=== PATIENT | female | born 1990 | race Caucasian/White ===

== ENCOUNTER 2019-07-16 10:18 | Emergency (ER) | payer BC ==
[2019-07-16] MEDS ORDERED: Dexamethasone 10 MG/ML SDV IM ONE (11:26)
[2019-07-16] MEDS ORDERED: Orphenadrine 100 MG Tab.ER PO ONE (11:26)
--- NOTE | 2019-07-16 11:35 | EDM.PDOC ---
ED HPI GENERAL MEDICAL PROBLEM - General Chief Complaint: Back Pain or Injury Stated Complaint: BACK PAIN DUE TO FALL Time Seen by Provider: 07/16/19 11:12 Source of Information: Reports: Patient, RN Notes Reviewed History Limitations: Reports: No Limitations - History of Present Illness INITIAL COMMENTS - FREE TEXT/NARRATIVE: Patient is a 28-year-old female who presents to the ED for evaluation of back pain. The patient states that she has been trying to lose some weight, and started working out on Sunday for the first time in a long time, and her legs were sore and felt a little bit weak due to the workout. She states that on Sunday at home she was walking down the stairs, and her legs gave out at the very end of her staircase, she states that she fell down one stair. The patient states she did not lose consciousness, she is not having any headache blurred vision or double vision she did not have any dental injuries or abrasions to the face. Patient states she is mainly concerned about her back pain as this is not seeming to be going away. She's been using ibuprofen for the pain, but she states the pain feels similar to when she had sciatica when she was one time before. She notes that she takes about 8-10 tablets daily of ibuprofen regular strength. The patient notes that she has never had a prior back injury, but she has had a prior neck injury, and she has some leftover Flexeril from this, she states that she took this at night and this seemed to help, but the pain was still there. The patient notes that the pain radiates down her right leg. The patient notes a recent move from [place], and she is scheduled to see Dr. Elliott at the end of the month to set up care for management. 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 Cysts Musculoskeletal History: Reports: None Neurological History: Reports: Migraines Psychiatric History: Reports: Anxiety Endocrine/Metabolic History: Reports: Obesity/BMI 30+ Hematologic History: Reports: None Immunologic History: Reports: None Oncologic (Cancer) History: Reports: None Dermatologic History: Reports: None - Infectious Disease History Infectious Disease History: Reports: None - Past Surgical History Head Surgeries/Procedures: Reports: None HEENT Surgical History: Reports: Oral Surgery Social & Family History - Tobacco Use Smoking Status *Q: Never Smoker - Caffeine Use Caffeine Use: Reports: None - Recreational Drug Use Recreational Drug Use: No - Living Situation & Occupation Living situation: Reports: Occupation: Unemployed (She is a [id number] mom with 3 youngsters.) ED ROS GENERAL - Review of Systems Review Of Systems: See Below Constitutional: Denies: Fever, Chills HEENT: Reports: No Symptoms Respiratory: Denies: Shortness of Breath Cardiovascular: Denies: Chest Pain Endocrine: Reports: No Symptoms GI/Abdominal: Denies: Abdominal Pain, Diarrhea, Nausea, Vomiting : Reports: No Symptoms Musculoskeletal: Reports: Back Pain (with radiation to R leg), Muscle Stiffness (lower back) Skin: Denies: Bruising Neurological: Denies: Numbness, Tingling, Difficulty Walking Psychiatric: Reports: No Symptoms Hematologic/Lymphatic: Reports: No Symptoms Immunologic: Reports: No Symptoms ED EXAM,LOWER BACK PAIN/INJURY - Physical Exam Exam: See Below Exam Limited By: No Limitations General Appearance: Alert, WD/WN, No Apparent Distress Eye Exam: Bilateral Eye: EOMI, Normal Inspection, PERRL Ears: Normal External Exam Nose: Normal Inspection Throat/Mouth: Normal Inspection, Normal Lips, Normal Teeth, Normal Gums, Normal Oropharynx, Normal Voice, No Airway Compromise Head: Atraumatic, Normocephalic Neck: Normal Inspection Respiratory/Chest: No Respiratory Distress, Lungs Clear, Normal Breath Sounds, No Accessory Muscle Use, Chest Non-Tender Cardiovascular: Normal Peripheral Pulses, Regular Rate, Rhythm, No Murmur GI/Abdominal: Normal Bowel Sounds, Soft, Non-Tender, No Distention, No Mass Back Exam: Normal Inspection, Decreased Range of Motion (limited d/t pain.), Muscle Spasm (lower back, muscle tightness notes) Extremities: Normal Inspection, Normal Range of Motion, Normal Capillary Refill Neurological: Alert, Normal Mood/Affect, Normal Dorsiflexion, Normal Plantar Flexion, Normal Gait, Normal Reflexes, No Motor/Sensory Deficits, Oriented x 3, Straight Leg Raise (R). No: Straight Leg Raise (L), Saddle Anesthesia, Difficulty Walking Psychiatric: Normal Affect, Normal Mood Skin Exam: Warm, Dry, Intact, Normal Color, No Rash Course - Vital Signs Last Recorded V/S: Last Vital Signs Temp 97.6 F 07/16/19 11:02 Pulse 98 07/16/19 11:02 Resp 16 07/16/19 11:02 BP 141/96 H 07/16/19 11:02 Pulse Ox 99 07/16/19 11:02 - Orders/Labs/Meds Orders: Active Orders 24 hr Category Date Time Status Lumbar Spine 2 or 3V [CR] Stat Exams 07/16/19 11:26 Ordered Meds: Medications Discontinued Medications Generic Name Dose Route Start Last Admin Trade Name Miguelq PRN Reason Stop Dose Admin Dexamethasone 10 mg 07/16/19 11:26 07/16/19 11:51 Dexamethasone IM 07/16/19 11:27 10 mg ONETIME ONE Administration Orphenadrine Citrate 100 mg 07/16/19 11:26 07/16/19 11:51 Norflex PO 07/16/19 11:27 100 mg ONETIME ONE Administration - Re-Assessments/Exams Free Text/Narrative Re-Assessment/Exam: 07/16/19 11:37 Patient presents to the ER for a back injury, I did order 100 mg PO Norflex, 10 mg IM dexamethasone, and a lumbar spine, for initial evaluation and management. Strongly suggestive of sciatica in nature, but she states when she moves certain ways her spine feels as if it wants to pop but will not. I want to rule out any further injury that she may have. 07/16/19 12:48 Patient's x-rays are done, and demonstrate no acute fracture or bony abnormalities, official radiology read is pending, but these x-rays reviewed by myself and Dr. Zimmerman. Will discharge home with general recommendations. We' ll treat her for sciatica at this time. Departure - Departure Time of Disposition: 12:49 Disposition: Home, Self-Care 01 Condition: Fair Clinical Impression: Low back pain Qualifiers: Chronicity: acute Back pain laterality: bilateral Sciatica presence: with sciatica Sciatica laterality: sciatica of right side Qualified Code(s): M54.41 - Lumbago with sciatica, right side - Discharge Information *PRESCRIPTION DRUG MONITORING PROGRAM REVIEWED*: No *COPY OF PRESCRIPTION DRUG MONITORING REPORT IN PATIENT [place]: No Prescriptions: Orphenadrine [Norflex] 100 mg PO BID PRN #20 tab PRN Reason: Spasms predniSONE [Deltasone] 20 mg PO ASDIRECTED #15 tablet Instructions: Sciatica, [id number] Referrals: PCP,None [Primary Care Provider] - Forms: ED Department Discharge Additional Instructions: You have been evaluated in the ED for your lower back pain. Your x-ray demonstrated no fracture or acute bony abnormality. Please use ice as tolerated to the affected area. Your pain is most likely due to sciatica in nature, you were given a prescription for prednisone, please take as directed and Norflex, this is a muscle relaxer and help also relieve some of the symptoms. You may take 500 mg Tylenol or 400 mg ibuprofen every 6 hours PRN for further pain relief. Please return to ED if your symptoms should change or worsen. - My Orders Last 24 Hours: My Active Orders 07/16/19 11:26 Lumbar Spine 2 or 3V [CR] Stat - Assessment/Plan Last 24 Hours: My Active Orders 07/16/19 11:26 Lumbar Spine 2 or 3V [CR] Stat
--- NOTE | 2019-07-16 13:55 | CR ---
Lumbar spine: AP, lateral and cone down lateral views centered to the lumbosacral junction were obtained. Comparison: No previous lumbar spine imaging. Vertebral body heights and disc spaces are maintained. Pedicles are intact. Transverse and spinous processes are intact. No subluxation or fracture is seen. IUD is present within the pelvis. Impression: 1. IUD. Three-view lumbar spine study shows nothing acute. Diagnostic code #2
== END 2019-07-16 13:10 | disposition home or self-care (01) ==
LOC: JD.ED 10:18
DX: M54.41 Lumbago with sciatica, right side (principal); E66.9 Obesity, unspecified; Z68.30 Body mass index [BMI] 30.0-30.9, adult; W10.9XXA Fall (on) (from) unspecified stairs and steps, initial encounter; Y93.01 Activity, walking, marching and hiking; Y92.009 Unspecified place in unspecified non-institutional (private) residence as the place of occurrence of the external cause
CPT/HCPCS: 72100; 96372; 99283; A9270; J1100